=== PATIENT | male | born 1965 ===

== ENCOUNTER → 2020-10-29 13:43 | Outpatient (ROUT) | payer OTHER, SELFPAY ==
[2020-10-29 14:17] LABS: COVID19 -Nasal RAPID Negative (Negative)
== END ==
PROVIDERS: PCP Family Medicine; Visit Provider Family Medicine
DX: Z20.822 Contact with and (suspected) exposure to COVID-19 (principal)
CPT/HCPCS: 87635

== ENCOUNTER → 2021-05-04 15:14 | Outpatient (ROUT) | payer OTHER, SELFPAY ==
[2021-05-04 15:43] LABS: COVID19 -Nasal RAPID Negative (Negative)
== END ==
PROVIDERS: PCP Family Medicine; Visit Provider Family Medicine
DX: Z20.822 Contact with and (suspected) exposure to COVID-19 (principal)
CPT/HCPCS: 87635